=== PATIENT | male | born 1940 | race Caucasian/White ===

== ENCOUNTER 2017-12-05 08:28 | Emergency (ER) | payer MEDICARE, SELFPAY ==
[2017-12-05] VITALS (16 sets, daily range): BP systolic 91–129; BP diastolic 45–70; PULSE 85–101; RESP 16–21; TEMP 36.7–36.9; O2SAT 91–98; BMI 33.2
[2017-12-05 08:41] LABS: Bedside Glucose 398 mg/dL (70-110)
--- NOTE | 2017-12-05 08:52 | ED.RN ---
CANNOT OBTAIN OLD EKG; MUSE IS DOWN
[2017-12-05 08:59] LABS: Basophil# 0.02 X10^3/uL; Basophil% 0.3 % (0-1); Eosinophil# 0.04 X10^3/uL; Eosinophils% 0.5 % (0-5); Hematocrit 21.3 % (40-54); Hemoglobin 7.1 g/dl (13.0-16.5); Lymphocyte % 16.3 % (19-41); Mean Corp Hgb Conc 33.3 g/gl (32-36); Mean Corpuscular Hgb 32.7 pg (27.0-32.0); Mean Corpuscular Volume 98.2 fL (80-94); Mean Platelet Vol. 11.5 fl (6.2-12.0); Monocyte# 0.54 X10^3/uL; Monocyte% 6.8 % (0-10); Neutrophil % 75.3 % (47-70); Platelet Count 120 K/mm3 (150-450); RBC Distribution Width CV 12.2 % (11.6-14.6); RBC Distribution Width SD 41.1 fl (35.1-43.9); Red Blood Count 2.17 M/mm3 (4.6-6.2)
[2017-12-05 09:01] LABS: POSITIVE COUNT NO; POSITIVE DIFFERENTIAL NO; POSITIVE MORPHOLOGY NO
--- NOTE | 2017-12-05 09:02 | ED.VISSUMM ---
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 On Friday night the patient was in the bathroom and had a syncopal event. It was unwitnessed because his was asleep in bed. He did fall in the bathroom while standing and states he has pain in his left lower lateral back since the fall. He did well 1 day ago and had a similar event today while walking into his bedroom. He had another syncopal event. Patient is on Coumadin. He is unsure if he hit his head but he denies any headaches. His only complaint other than passing out is in his left flank has been sore. He had one episode of vomiting today after the event. He has had no recent diarrhea or melena. No chest pain or shortness of breath. No abdominal pain. He typically does not pass out. In September he had his pacemaker checked and it was doing well. Physical Examination: Well-appearing older male. Vital signs are stable and afebrile. He is in no acute distress. H EENT exam unremarkable. Pupils round reactive light. There is no signs of trauma to his face or scalp. No hematomas or tenderness. C-spine nontender. Trachea midline. Lungs clear to auscultation bilaterally. Heart regular rhythm rate about 100. Chest wall nontender. Abdomen soft nontender. No peritoneal signs. Pelvic girdle intact. He is moving all 4 extremities. 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 Dorsi and plantar flexion intact. No deformities. Back his cervical, thoracic and lumbar spine are nontender. He does have some right flank tenderness but there is no ecchymosis or bruising. No subcu air or crepitance. Neurologically is awake and alert with no focal motor deficits. His is present in the room and she gives me most of the history. Rectal exam revealed black stool consistent with an upper GI bleed. Also the patient has some bruising on right lower anderson lumbar area that is tender. Test Results: CBC shows a white count 8. Hemoglobin is 7.1 the most recent hemoglobin before that was 16. Platelet count of 120,000. Chemistries normal gap of 10. Blood sugar 391. His BUN is 74 consistent with an upper GI bleed he is not that dehydrated. Creatinine is 0.96. INR is currently pending. Troponin normal. EKG is a sinus rhythm rate of 96 with an intra-ventricular conduction delay. Emergency Department Course and Treatment: Elderly male with 2 syncopal episodes in the last 72 hours. Treatment Plan: Patient will be typed and cross for blood. Transfuse 1 unit initially. I have already spoken to both he and his at bedside. I have both the hospitalist and general surgeon on page for ICU admission and upper endoscopy. He will also be started on Protonix. Disposition: Admission Impression: Acute syncope ?2 Acute severe anemia Upper GI bleed Transfused blood Thrombocytopenia History of pacemaker Anticoagulated on Coumadin secondary to prior DVT and PEs This note was generated with [employer] dictation software. It may contain incorrect words, spelling, and punctuation that were not noted in review of the chart prior to signing ED Disposition - Plan for ED Patient: Chief Complaint: Syncope Referrals: Alexa Diaz MD [Primary Care Provider] -
--- NOTE | 2017-12-05 09:05 | ED.DCSUM_ITS ---
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 On Friday night the patient was in the bathroom and had a syncopal event. It was unwitnessed because his was asleep in bed. He did fall in the bathroom while standing and states he has pain in his left lower lateral back since the fall. He did well 1 day ago and had a similar event today while walking into his bedroom. He had another syncopal event. Patient is on Coumadin. He is unsure if he hit his head but he denies any headaches. His only complaint other than passing out is in his left flank has been sore. He had one episode of vomiting today after the event. He has had no recent diarrhea or melena. No chest pain or shortness of breath. No abdominal pain. He typically does not pass out. In September he had his pacemaker checked and it was doing well. Physical Examination: Well-appearing older male. Vital signs are stable and afebrile. He is in no acute distress. H EENT exam unremarkable. Pupils round reactive light. There is no signs of trauma to his face or scalp. No hematomas or tenderness. C-spine nontender. Trachea midline. Lungs clear to auscultation bilaterally. Heart regular rhythm rate about 100. Chest wall nontender. Abdomen soft nontender. No peritoneal signs. Pelvic girdle intact. He is moving all 4 extremities. 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 Dorsi and plantar flexion intact. No deformities. Back his cervical , thoracic and lumbar spine are nontender. He does have some right flank tenderness but there is no ecchymosis or bruising. No subcu air or crepitance. Neurologically is awake and alert with no focal motor deficits. His is present in the room and she gives me most of the history. Rectal exam revealed black stool consistent with an upper GI bleed. Also the patient has some bruising on right lower anderson lumbar area that is tender. Test Results: CBC shows a white count 8. Hemoglobin is 7.1 the most recent hemoglobin before that was 16. Platelet count of 120,000. Chemistries normal gap of 10. Blood sugar 391. His BUN is 74 consistent with an upper GI bleed he is not that dehydrated. Creatinine is 0.96. INR is currently pending. Troponin normal. EKG is a sinus rhythm rate of 96 with an intra-ventricular conduction delay. Emergency Department Course and Treatment: Elderly male with 2 syncopal episodes in the last 72 hours. Treatment Plan: Patient will be typed and cross for blood. Transfuse 1 unit initially. I have already spoken to both he and his at bedside. I have both the hospitalist and general surgeon on page for ICU admission and upper endoscopy. He will also be started on Protonix. Disposition: Admission Impression: Acute syncope ?2 Acute severe anemia Upper GI bleed Transfused blood Thrombocytopenia History of pacemaker Anticoagulated on Coumadin secondary to prior DVT and PEs This note was generated with [employer] dictation software. It may contain incorrect words, spelling, and punctuation that were not noted in review of the chart prior to signing ED Disposition - Plan for ED Patient: Chief Complaint: Syncope Referrals: Alexa Diaz MD [Primary Care Provider] -
[2017-12-05 09:10] LABS: Anion Gap 10 (5-15); BUN 74 mg/dL (7-18); BUN/Creat Ratio 77.3 RATIO (10-20); Calcium,Total 7.9 mg/dL (8.5-10.1); Chloride 108 mmol/L (98-107); Creatinine, Serum 0.96 mg/dL (0.70-1.30); EST Glomerular Filtration Rate 81 mL/min (>60); Est Glom Filt Rate - Afr Amer 98 mL/min (>60); Estimated Creatinine Clearance 67.59 ml/min; Glucose 391 mg/dL (74-106); Potassium 4.1 mmol/L (3.5-5.1); Sodium Level 139 mmol/L (136-145)
[2017-12-05 09:33] LABS: International Normalized Ratio 3.6
--- NOTE | 2017-12-05 11:12 | PCM.CONS.GEN ---
Problem List (1) Upper GI bleed Status: Acute Reason for Consult Date of Consultation: 12/05/17 Reason for Consultation: Anemia with possible upper GI bleed History of Present Illness: The patient is a 77 year old M who had a syncopal episode where he fell in the bathroom. He says that he has been having black stools for a day now. He has no nausea or vomiting. He has no abdominal pain. He is anticoagulated for history of PE and DVTs. He says this was over 10 years ago and he has been on anticoagulation ever since. He has never had a GI bleed in the past. He has no other complaints at this time. Past Medical History Allergies No Known Allergies Allergy (Verified 12/05/17 08:44) Home Medications: Ambulatory Orders Medication Instructions Recorded Amlodipine Besylate [Amlodipine 10 mg PO DAILY 04/13/16 Besylate] Atorvastatin Calcium [Lipitor] 40 mg PO DAILY 04/13/16 Benazepril HCl [Benazepril HCl] 20 mg PO DAILY 04/13/16 Citalopram Hydrobromide 40 mg PO DAILY 04/13/16 [Citalopram HBr] Glipizide [Glipizide] 20 mg PO BID 04/13/16 Insulin Glargine [Lantus (BKC)] 37 units SC QHS 04/13/16 Metformin HCl [Metformin HCl] 2,000 mg PO BID 04/13/16 Metoprolol Tartrate [Metoprolol 50 mg PO BID 04/13/16 Tartrate] Spiriva INHALATION 04/13/16 Warfarin Sodium [Warfarin Sodium] 5 mg PO DAILY 04/13/16 Surgical History: pacemaker implantation Smoking Status: Former smoker - *Family History Paternal History Items: No pertinent history Review of Systems Constitutional: Denies: Anorexia, Chills, Fever HEENT: Denies: Difficulty Swallowing Cardiovascular: Denies: Chest Pain, Chest Tightness Respiratory: Denies: Cough, Shortness of Breath Gastrointestinal: Reports: Melena. Denies: Abdominal Pain, Hematemesis, Nausea, Vomiting Genitourinary: Denies: Dysuria Musculoskeletal: Denies: Arm Pain, Joint Tenderness Skin: Denies: Dryness, Jaundice Neurological: Denies: Difficulty swallowing Psychiatric: Denies: Anxiety, Depression Hematologic/ Lymphatic: Reports: Anemia Patient Problems: Active and Suspected Problems Upper GI bleed (Acute) - Physical Exam General: Alert, Oriented x3, Cooperative, No apparent distress HEENT: Atraumatic, PERRLA, EOMI, Normocephalic Lungs: Normal air movement Cardiovascular: Regular rate, Regular Rhythm Abdomen: Soft, Non Tender, Non-Distended Extremities: No clubbing Skin: No breakdown Musculoskeletal: No Tenderness to Palpation of Joints or Extremities, No Muscle Wasting Lymphatic: No Cervical, Supraclavicular, or Inguinal Adenopathy Neurological: Cranial nerves II-XII grossly intact Psych/Mental Status: Normal Affect Vital Signs Temp Pulse Resp BP Pulse Ox 98.3 F 89 18 104/68 94 12/05/17 11:05 12/05/17 11:05 12/05/17 11:05 12/05/17 11:05 12/05/17 11:05 Oxygen Flow Rate (L/min) 2 Oxygen Delivery Method Nasal Cannula Weight: 231 lb 7.766 oz Body Mass Index (BMI) 33.2 Finger Stick Blood Glucose 198 Intake and Output for Last 24 Hours 12/03/17 12/04/17 12/05/17 23:59 23:59 23:59 Intake Total 0 / 0 Balance 0 / 0 Laboratory Tests Past 24 Hrs 12/05/17 12/05/17 12/05/17 08:33 08:33 08:33 WBC 8.0 RBC 2.17 L Hgb 7.1 L Hct 21.3 L MCV 98.2 H MCH 32.7 H MCHC 33.3 RDW 12.2 RDW Differential 41.1 Plt Count 120 L MPV 11.5 Immature Gran % (Auto) 0.800 Neut % (Auto) 75.3 H Lymph % (Auto) 16.3 L Desha % (Auto) 6.8 Eos % (Auto) 0.5 Baso % (Auto) 0.3 Absolute Neuts (auto) 6.0 Absolute Lymphs (auto) 1.30 Total Counted Not Reportable PT 36.0 H INR 3.6 H* Sodium 139 Potassium 4.1 Chloride 108 H Carbon Dioxide 21.0 Anion Gap 10 BUN 74 H Creatinine 0.96 Estim Creat Clear Calc 67.59 Est GFR (MDRD) Af Amer 98 Est GFR (MDRD) Non-Af 81 BUN/Creatinine Ratio 77.3 H Glucose 391 H Calcium 7.9 L Troponin I 0.020 Blood Type Antibody Screen Crossmatch 12/05/17 09:20 WBC RBC Hgb Hct MCV MCH MCHC RDW RDW Differential Plt Count MPV Immature Gran % (Auto) Neut % (Auto) Lymph % (Auto) Desha % (Auto) Eos % (Auto) Baso % (Auto) Absolute Neuts (auto) Absolute Lymphs (auto) Total Counted PT INR Sodium Potassium Chloride Carbon Dioxide Anion Gap BUN Creatinine Estim Creat Clear Calc Est GFR (MDRD) Af Amer Est GFR (MDRD) Non-Af BUN/Creatinine Ratio Glucose Calcium Troponin I Blood Type A NEGATIVE Antibody Screen NEGATIVE Crossmatch See Detail POC Glucose 12/05/17 08:33 POC Glucose 398 H Clinical Impression(s) from Imaging Studies Brain CT 12/05/17 08:43 IMPRESSION: 1. Chronic involutional changes of the brain. 2. No CT evidence of acute intracranial hemorrhage. Electronically Signed: Patricia Dejesus MD at 10:19 EDT , Service support , Chest X-Ray 12/05/17 09:30 IMPRESSION: Left basilar subsegmental atelectasis. Electronically Signed: Patricia Dejesus MD at 10:23 EDT , Service support , Abdomen/Pelvis CT 12/05/17 09:34 IMPRESSION: 1. Multiple bilateral renal cystic lesions. The cystic lesions on the left appear to be complex but were present on the previous CT and are unchanged. 2. Sequela of chronic pancreatitis. 3. No CT evidence of acute intra-abdominal disease. Electronically Signed: Patricia Dejesus MD at 10:35 EDT , Service support , Assessment/Plan All Active Problems Upper GI bleed (Acute) 77-year-old male status post fall from syncopal episode 1. Patient has CT of his abdomen and pelvis as well as head which was normal. Patient notes dark stools for the last day. He is anemic and is receiving FFP and blood in the emergency room. He is not complaining of any abdominal pain with no hematemesis. 2. I do plan for EGD today to see what is the cause of the upper GI bleed or if there is any active bleeding. I agree with reversing his INR but once the bleeding has been taking care of he will need to be put on Lovenox soon due to risk of DVTs and PE. I explained EGD to the patient and his family. I explained that I would be putting scope into the stomach but he is still on anticoagulation. I would biopsy anything I would be able to find but I would not be too aggressive as he is at high risk of bleeding. I explained the risks of bleeding and perforation of the bowel. I explained that if there was any bleeding I was unable to control I would have to transfer him to a tertiary care center. The patient understands all the risks is only to proceed with scope. Jamie Marsh MD Pager: [facility] [address] [place] [address], [address] [place] [address] Office:
[2017-12-05] MEDS: Phytonadione (Vit K) 10 MG/ML Ampul 5 MG PO (11:29)
--- NOTE | 2017-12-05 13:45 | ED.RN ---
called [facility] faxed
--- NOTE | 2017-12-05 13:45 | PCM.OPRPT ---
Problem List (1) Upper GI bleed Status: Acute Report of Operation Date of Procedure: 12/05/17 Pre-Operative Diagnosis: Upper GI bleed Post-Operative Diagnosis: GE junction mass Surgery/Procedure Performed:: EGD Specimen's removed: None Description of Procedure: The major risks and benefits associated with the procedure were explained to the patient in detail. The patient verbalized understanding and agreement with the same. The patient was then placed in the left lateral decubitus position. IV sedation was started by anesthesia. The endoscope was then advanced under direct visualization over the tongue, into the esophagus, stomach and duodenum. There was copious old blood in the stomach. The scope was advanced into the duodenum and there was old blood in the duodenum. The pylorus was irrigated and suctioned with no active bleeding. The duodenum was also irrigated with no active bleeding. There was no ulceration. The scope was withdrawn into the stomach and this was irrigated as best as possible and there were no ulcerations or masses. When the scope was retracted to the GE junction there was a polypoid mass occupying a third of the GE junction. I did not biopsy this as the patient is actively anticoagulated. The scope was then withdrawn into the esophagus and the remainder of the esophagus appeared normal. The scope was then withdrawn from the patient and the procedure terminated. It was well tolerated and there were no immediate complications. I discussed this with the patient's family and they would like transfer to [facility] due to the patient's other doctors being there and he can have the remainder of his care there. I will discuss this with the emergency room physician and arrange it.
== END 2017-12-05 15:53 | disposition short-term general hospital (02) ==
LOC: ED 09:46 → EN 10:06 → ED 12:43 → AC 12:48 → ED 14:07
PROVIDERS: Surgery; Emergency Provider Emergency Medicine; Family Provider Internal Medicine; PCP Internal Medicine
PROC: 0DJ08ZZ Inspection of Upper Intestinal Tract, Via Natural or Artificial Opening Endoscopic (ICD-10-PCS; CPT 43235; principal; 2017-12-05 11:55)
DX: K31.7 Polyp of stomach and duodenum (principal); K92.2 Gastrointestinal hemorrhage, unspecified; D62 Acute posthemorrhagic anemia; R55 Syncope and collapse; D69.6 Thrombocytopenia, unspecified; E11.9 Type 2 diabetes mellitus without complications; Z95.0 Presence of cardiac pacemaker; Z86.711 Personal history of pulmonary embolism; Z86.718 Personal history of other venous thrombosis and embolism; Z87.891 Personal history of nicotine dependence; Z79.4 Long term (current) use of insulin; Z79.01 Long term (current) use of anticoagulants; Z79.899 Other long term (current) drug therapy
CPT/HCPCS: 43235; 36430; 70450; 71046; 74176; 80048; 82962; 84484; 85025; 85610; 86644; 86850; 86900; 86920; 86922; 93005; 96365; 96366; 99285; J7030; P9016; P9017; A4216

== ENCOUNTER → 2017-12-30 15:18 | Outpatient (CLI) | payer MEDICARE, SELFPAY ==
--- NOTE | 2017-12-30 15:21 | VDUE_ITS ---
Reason For Study: LUE swelling Left Proximal Left jugular vein is spontaneous, widely patent, phasic, with no intraluminal echogenicity noted. Subclavian, Axillary, and Brachial vein are dilated and non-compressible with intraluminal echoes and absent blood flow signal. Basilic v and Median cubital vein are dilated and non-compressible. Left Arm Left cephalic vein is compressible. Left Lower Arm Left radial vein is compressible. Left ulnar vein is compressible. Interpretation Summary Acute deep vein thrombosis is noted in the left subclavian vein. Acute deep vein thrombosis is noted in the left axillary vein. Acute deep vein thrombosis is noted in the left brachial vein. The remainder of the left upper extremity deep venous system is patent. Acute superficial thrombophlebitis is noted in the left basilic vein and median cubital vein. The left cephalic vein is patent and compressible. Ordering Physician: Alexa Diaz Referring Physician: Alexa Diaz Performed By: Lois Berrios RVT and Student ???
== END ==
PROVIDERS: Family Provider Internal Medicine; PCP Internal Medicine; Visit Provider Internal Medicine
DX: M79.89 Other specified soft tissue disorders (principal); Z86.718 Personal history of other venous thrombosis and embolism
CPT/HCPCS: 93971

== ENCOUNTER → 2018-01-22 09:01 | Outpatient (CLI) | payer MEDICARE, SELFPAY ==
[2018-01-22 10:16] LABS: International Normalized Ratio 2.3; Prothrombin Time (Protime)PT. 25.8 SECONDS (11.7-14.9)
== END ==
PROVIDERS: Family Provider Internal Medicine; PCP Internal Medicine; Referring Provider Internal Medicine; Visit Provider Internal Medicine
DX: I82.409 Acute embolism and thrombosis of unspecified deep veins of unspecified lower extremity (principal); Z51.81 Encounter for therapeutic drug level monitoring; Z79.01 Long term (current) use of anticoagulants
CPT/HCPCS: 85610

== ENCOUNTER → 2018-03-09 12:19 | Outpatient (CLI) | payer MEDICARE, SELFPAY ==
[2018-03-09 13:03] LABS: Absolute Lymphocyte Count 0.22 X10^3/ul (0.83-4.51); Absolute Neutrophil Count 1.2 X10^3/uL (2.0-7.7); Basophil# 0.01 X10^3/uL; Basophil% 0.6 % (0-1); Eosinophil# 0.03 X10^3/uL; Eosinophils% 1.9 % (0-5); Hematocrit 34.5 % (40-54); Hemoglobin 10.6 g/dl (13.0-16.5); Lymphocyte # 0.22 X10^3/ul (4.0); Lymphocyte % 13.8 % (19-41); Mean Corp Hgb Conc 30.7 g/gl (32-36); Mean Corpuscular Hgb 25.4 pg (27.0-32.0); Mean Corpuscular Volume 82.7 fL (80-94); Mean Platelet Vol. 10.6 fl (6.2-12.0); Monocyte# 0.12 X10^3/uL; Monocyte% 7.5 % (0-10); Neutrophil # 1.21 X10^3/uL (2.7-7.7); Neutrophil % 76.2 % (47-70); Platelet Count 68 K/mm3 (150-450); RBC Distribution Width CV 18.7 % (11.6-14.6); RBC Distribution Width SD 53.5 fl (35.1-43.9); Red Blood Count 4.17 M/mm3 (4.6-6.2); White Blood Count 1.6 K/mm3 (4.4-11.0)
[2018-03-09 13:05] LABS: Differential Indicated SCAN CRITERIA MET; POSITIVE COUNT NO; POSITIVE DIFFERENTIAL YES; POSITIVE MORPHOLOGY NO
[2018-03-09 13:11] LABS: Platelet Estimate MKD DEC (ADEQ)
[2018-03-10 10:17] LABS: Pathologist Review Reviewed
== END ==
PROVIDERS: Family Provider Internal Medicine; PCP Internal Medicine; Referring Provider Internal Medicine Hematology & Oncology; Visit Provider Internal Medicine Hematology & Oncology
DX: C15.9 Malignant neoplasm of esophagus, unspecified (principal)
CPT/HCPCS: 85025

== ENCOUNTER → 2018-04-20 11:12 | Outpatient (CLI) | payer MEDICARE, SELFPAY ==
[2018-04-20 11:33] LABS: International Normalized Ratio 1.6; Prothrombin Time (Protime)PT. 19.3 SECONDS (11.7-14.9)
== END ==
PROVIDERS: PCP Internal Medicine; Visit Provider Internal Medicine
DX: Z79.01 Long term (current) use of anticoagulants (principal); Z86.718 Personal history of other venous thrombosis and embolism
CPT/HCPCS: 85610